=== PATIENT | male | born 1990 | race Caucasian/White ===

== ENCOUNTER 2019-12-21 19:00 | Emergency (ER) | payer OTHER ==
[~2019-12-21] VITALS: Ht 180.3 cm; Wt 78.9 kg
[2019-12-21 19:19] VITALS: BP 148/84
[2019-12-21] MEDS ORDERED: NACL 0.9% 1,000 ML IV ONE (19:30)
[2019-12-21] MEDS ORDERED: ONDANSETRON 4 MG/2 ML VIAL IVP ONE (19:30)
--- NOTE | 2019-12-21 19:46 | NUR ---
PT TAKEN TO BED 7
[2019-12-21 20:06] LABS: BASOPHILS # (AUTO) 0.1 K/uL (0.00-0.22); BASOPHILS % (AUTO) 0.7 % (0.0-2.0); EOSINOPHILS % (AUTO) 0.1 % (0.0-4.0); HEMOGLOBIN 14.1 g/dL (12.0-18.0); LYMPHOCYTES # (AUTO) 0.7 K/uL (2.0-11.5); LYMPHOCYTES % (AUTO) 5.8 % (20.5-51.1); MEAN CORPUSCULAR HEMOGLOBIN 28 pg (27-31); MEAN CORPUSCULAR HGB CONC 33 g/dL (33-37); MEAN CORPUSCULAR VOLUME 84.5 fL (80-94); MONOCYTES # (AUTO) 0.7 K/uL (0.8-1.0); MONOCYTES % (AUTO) 5.6 % (1.7-9.3); NEUTROPHILS # (AUTO) 10.5 K/uL (1.8-7.7); NEUTROPHILS % (AUTO) 87.8 % (42.2-75.2); PLATELET COUNT (AUTO) 275 K/uL (140-450); RED BLOOD CELL COUNT(AUTO) 5.09 MIL/uL (4.20-6.10); RED CELL DISTRIBUTION WIDTH 14.2 % (11.6-13.7)
[2019-12-21 20:26] LABS: ALBUMIN 4.5 g/dL (3.4-5.0); ANION GAP 21.3 (8-16); CARBON DIOXIDE 21.3 mmol/L (21-32); CREATININE 1.1 mg/dL (0.6-1.3); POTASSIUM 3.6 mmol/L (3.5-5.1); TOTAL BILIRUBIN 0.7 mg/dL (0.0-1.0)
--- NOTE | 2019-12-21 20:40 | NUR ---
29 YEAR OLD MALE COMPLAINS OF NAUSEA, VOMITTING, AND ABDOMINAL PAIN X 8 HOURS. ABDOMINAL PAIN IS EPIGASTRIC, PT STATES STARTED AFTER VOMITTING ALOT. PT AOX4, BREATHING EVEN AND UNLABORED, SKIN WARM AND DRY. BED IN LOWEST POSITION, LOCKED, BED RAIL UPX1. PMH - DENIES ALLERGIES - NKA
--- NOTE | 2019-12-21 20:59 | NUR ---
Dr. Hilliard examining patient.
--- NOTE | 2019-12-21 21:10 | NUR ---
PT CARE TO [facility]. PT IS AAOX4.
--- NOTE | 2019-12-21 21:10 | NUR ---
Patient discharged with v/s stable. Written and verbal after care instructions given and explained. Patient alert, oriented and verbalized understanding of instructions. Ambulatory with steady gait. All questions addressed prior to discharge. ID band removed. Patient advised to follow up with PMD. Rx of ZOFRAN, given. pt is aaox4, and walk insteady gait. No complains noted. Pt d/c
--- NOTE | 2019-12-21 21:11 | NUR ---
raj bolden was d/c.
[2019-12-21 21:15] VITALS: BP 125/81
== END 2019-12-21 21:10 | disposition home or self-care (01) ==
LOC: MED 19:00
DX: R11.15 Cyclical vomiting syndrome unrelated to migraine (principal); R10.13 Epigastric pain; R11.10 Vomiting, unspecified
CPT/HCPCS: 36415; 80053; 83690; 85025; 96374; 99283; G0482; J2405; J7030

== ENCOUNTER 2021-10-29 17:58 | Emergency (ER) | payer OTHER ==
[~2021-10-29] VITALS: Ht 180.3 cm; Wt 74.8 kg
[2021-10-29 18:06] VITALS: BP 118/81
[2021-10-29] MEDS ORDERED: LORazepam 1 MG TAB PO ONE (18:55)
--- NOTE | 2021-10-29 19:37 | NUR ---
pt taken to bed 12.
--- NOTE | 2021-10-29 19:43 | NUR ---
31 yo m bib self with c/c of "felt weird", states he feels something is not right. reports abd pain 8/10 with nausea. and 10/10 h/a. reports the use of cocaine today as well as yesterday. denies hx, rx and allergies
--- NOTE | 2021-10-29 19:46 | NUR ---
pt confirmed he has a ride home. pt medicated per order.
[2021-10-29 20:21] VITALS: BP 113/58
--- NOTE | 2021-10-29 20:21 | NUR ---
Patient discharged with v/s stable. Written and verbal after care instructions given and explained. Patient verbalized understanding. Ambulatory with steady gait. All questions addressed prior to discharge. Advised to follow up with PMD.
== END 2021-10-29 20:21 | disposition home or self-care (01) ==
LOC: MED 17:58
DX: F14.129 Cocaine abuse with intoxication, unspecified (principal); F41.9 Anxiety disorder, unspecified
CPT/HCPCS: 93005; 99283

== ENCOUNTER 2022-12-30 02:19 | Emergency (ER) | payer OTHER ==
[~2022-12-30] VITALS: Ht 180.3 cm; Wt 72.6 kg
[2022-12-30 02:44] VITALS: BP 129/91; PULSE 124; RESP 17; TEMP 98.2; O2SAT 99
--- NOTE | 2022-12-30 02:44 | NUR ---
to bed ambulatory
[2022-12-30 03:42] VITALS: BP 129/91; PULSE 124; RESP 17; TEMP 98.2
--- NOTE | 2022-12-30 03:42 | NUR ---
Patient discharged with v/s stable. Written and verbal after care instructions given and explained. Patient verbalized understanding. Ambulatory with steady gait. All questions addressed prior to discharge. PT REFULSED TO SIGN DISCHARGE PAPERWORK, CONTINUES TO REPEAT THE NEED FOR TREATMENT OF RASH. Advised to follow up with PMD.
[2022-12-30 03:48] VITALS: O2SAT 99
== END 2022-12-30 03:42 | disposition home or self-care (01) ==
LOC: MED 02:19
DX: R07.89 Other chest pain (principal); E86.0 Dehydration; F91.9 Conduct disorder, unspecified; F14.90 Cocaine use, unspecified, uncomplicated
CPT/HCPCS: 99281